=== PATIENT | female | born 1985 | race Caucasian/White ===

== ENCOUNTER 2020-02-23 14:39 | Emergency (ER) | payer OTHER ==
[~2020-02-23] VITALS: Ht 157.5 cm; Wt 64.9 kg
[2020-02-23] MEDS ORDERED: NOHOMEMEDICATIONS (14:56)
[2020-02-23 15:25] LABS: ABSOLUTE NEUTROPHILS 4.1 thou/uL (1.4-8.2); BASOPHILS 1.3 % (0.0-2.0); EOSINOPHILS 5.3 % (0.0-3.0); HEMATOCRIT 41.2 % (37.0-47.0); HEMOGLOBIN 14.4 gm/dL (12.0-15.0); LYMPHOCYTES 32.4 % (24.0-44.0); MCH 31.2 pg (26.0-34.0); MCV 89.3 fL (80.0-100.0); MONOCYTES 7.4 % (1.0-8.0); PLATELET COUNT 352 thou/uL (150-400); POLYS 53.6 % (36.0-66.0); RBC 4.62 mil/uL (4.20-5.00); RDW 12.6 % (10.5-14.5); WBC 7.7 thou/uL (4.0-11.0)
[2020-02-23 15:33] LABS: CALCIUM 9.1 mg/dL (8.5-10.1); CREATININE 0.7 mg/dL (0.6-1.0); POTASSIUM 3.8 mmol/L (3.5-5.1)
[2020-02-23 15:40] LABS: ALBUMIN 3.8 g/dL (3.4-5.0); TOTAL BILIRUBIN 0.6 mg/dL (0.2-1.0); TOTAL PROTEIN 7.7 g/dL (6.4-8.2)
[2020-02-23] MEDS ORDERED: MEDI-MECLIZINE25 MG PO (18:06)
[2020-02-23 18:25] VITALS: BP 104/70
== END 2020-02-23 18:25 | disposition home or self-care (01) ==
LOC: ER 14:39
PROVIDERS: Physician Assistant
DX: R51 Headache (principal); R42 Dizziness and giddiness; Z88.6 Allergy status to analgesic agent